=== PATIENT | male | born 1960 | race Caucasian/White ===

== ENCOUNTER 2018-01-15 15:13 | Outpatient (CLI) | payer OTHER ==
--- NOTE | 2018-01-15 19:13 | XRay Report ---
FINAL REPORT EXAM: XR CHEST 1V AP HISTORY: Persistent COUGH TECHNIQUE: AP portable view of the chest PRIORS: None. FINDINGS: Lines, tubes, and devices: N/A Lungs and pleura: Trachea is normal in position. Lungs are clear of infiltrate, pleural effusion, vascular congestion, or pneumothorax. Cardiomediastinal silhouette: Cardiac and mediastinal silhouettes are unremarkable. Other: Bony structures are intact. IMPRESSION: No acute cardiopulmonary process seen.
== END 2018-01-15 15:14 | disposition home or self-care (01) ==
LOC: XRAY 15:13
PROVIDERS: ATTEND Physician Assistant
DX: R05 Cough (principal)
CPT/HCPCS: 71045

== ENCOUNTER 2018-05-24 15:28 | Outpatient (CLI) | payer OTHER | END 2018-05-24 15:29 | disposition home or self-care (01) | LOC: LAB 15:28 | PROVIDERS: ATTEND Ophthalmology | DX: Z11.3 Encounter for screening for infections with a predominantly sexual mode of transmission (principal) | CPT/HCPCS: 36415; 87806 ==